=== PATIENT | male | born 1985 | race Caucasian/White ===

== ENCOUNTER 2017-04-02 07:48 | Emergency (ER) | payer OTHER ==
[~2017-04-02] VITALS: Ht 165.1 cm; Wt 111.8 kg
[2017-04-02 07:51] VITALS: BP 133/82
== END 2017-04-02 08:25 | disposition home or self-care (01) ==
LOC: ED 07:48
DX: K02.9 Dental caries, unspecified (principal); L03.211 Cellulitis of face
CPT/HCPCS: J1885

== ENCOUNTER 2017-05-22 09:38 | Emergency (ER) | payer OTHER ==
[2017-05-22 09:47] VITALS: BP 136/76
== END 2017-05-22 10:29 | disposition home or self-care (01) ==
LOC: ED 09:38
DX: K04.7 Periapical abscess without sinus (principal)

== ENCOUNTER 2017-07-25 22:45 | Emergency (ER) | payer OTHER ==
[2017-07-25 23:48] VITALS: BP 119/71
== END 2017-07-25 23:48 | disposition home or self-care (01) ==
LOC: ED 22:45
DX: M54.5 Low back pain (principal)
CPT/HCPCS: J1170; J1885; Q0162

== ENCOUNTER 2017-08-19 23:32 | Emergency (ER) | payer OTHER ==
[2017-08-20 02:00] VITALS: BP 120/65
== END 2017-08-20 02:00 | disposition home or self-care (01) ==
LOC: ED 23:32
DX: M54.5 Low back pain (principal)

== ENCOUNTER 2017-11-05 12:23 | Emergency (ER) | payer OTHER ==
[~2017-11-05] VITALS: Ht 167.6 cm; Wt 113.8 kg
[2017-11-05 12:48] VITALS: Ht 167.6 cm; Wt 113.8 kg
[2017-11-05 17:35] VITALS: BP 111/43
== END 2017-11-05 17:35 | disposition home or self-care (01) ==
LOC: ED 12:23
DX: R10.9 Unspecified abdominal pain (principal); R19.7 Diarrhea, unspecified; R11.10 Vomiting, unspecified